=== PATIENT | female | born 1955 | race Caucasian/White ===

== ENCOUNTER 2017-05-03 18:41 | Inpatient (IN) ==
[2017-05-03] MEDS ORDERED: SODIUM CHLORIDE 0.9% 500 ML IV STA (19:40)
--- NOTE | 2017-05-03 19:47 | Emergency Department Note ---
Arrival - Arrival Chief Complaint: Arrhythmia/Palpitations Stated Complaint: PT HAS HEART MONITOR/DR CALLED TO COME TO ER ED Nursing Triage Note: Pt states that she is wearing 30 day holter monitor and states that she was called by monitor [employer] and was told to come to ER after a near syncopal episode Mode of Arrival: Ambulatory Limitations: No Limitations Source: Patient Time Seen by Provider: 05/03/17 19:28 - History of Present Illness HPI Narrative: The patient complains of a near syncopal episode this afternoon. It occurred while she was sitting at her computer. She felt lightheaded and everything turned dark. She felt like she was going to pass out but never actually did. This patient has a history of these episodes and a history of paroxysmal A. fib which is manifested by palpitations only, but the 2 do not seem to be connected. She is currently wearing a 30 day Holter monitor. The patient was not having her typical A. fib symptoms when this episode occurred. She pushed the event button on her monitor. She was called later by the monitor company who then contacted [facility]. They apparently contacted Dr. Gonsales and were told to send the patient to the emergency room. It is unclear what the finding was that prompted this. The patient did not have chest pain, palpitations, shortness of breath, nausea, vomiting or diaphoresis. She denies any recent illness. She was recently admitted at [facility] for further evaluation of these episodes. She says she had an echocardiogram which showed an ejection fraction of 30%. She says she also had right and left heart catheterizations. They found only a 30% blockage in 1 of her stents. She apparently had some CHF there as they diuresed her and put her on outpatient Lasix. She denies any swelling or increased shortness of breath. She thinks that she has taken too much Lasix and is now dehydrated. Date of Last Menstrual Period: chase Allergies/Adverse Reactions: Allergies Allergy/AdvReac Type Severity Reaction Status Date / Time Penicillins Allergy RASH Verified 02/24/16 22:00 Home Medications: Home Medications Medication Instructions Recorded Confirmed Type Albuterol Sulfate [Proair HFA] 2 puff INH Q6H PRN 02/24/16 02/25/16 History Aspirin [Ecotrin] 325 mg PO DAILY 02/24/16 02/25/16 History Dronedarone [Multaq] 400 mg PO BID W/MEALS 02/24/16 02/25/16 History Niacin ER [Niaspan] 500 mg PO DAILY 02/24/16 02/25/16 History Potassium Chloride [Klor-Con M20] 20 meq PO DAILY 02/24/16 02/25/16 History clonazePAM [Clonazepam] 0.25 mg PO Q8HR PRN 02/24/16 02/25/16 History Nicotine 7 mg/24 Hr Patch 1 patch TRANSDERM DAILY #30 patch 02/25/16 Rx [Nicoderm CQ 7 mg/24 hr Patch] Sertraline [Zoloft] 50 mg PO BEDTIME #30 tablet 02/25/16 Rx Review of System - Review of System 12 point system: reviewed and no additional remarkable complaints except as stated - Review of System Constitutional: Absent: fever, weakness Head/Ears/Nose/Throat: Absent: nasal drainage, sore throat Respiratory: Present: cough. Absent: respiratory distress, wheezing Cardiovascular: Present: palpitations, edema. Absent: chest pain, dyspnea on exertion, orthopnea Gastrointestinal: Absent: nausea, vomiting Medical,Surgical,& Family Hx - Medical History Cardio: History of: Cardiac Dysrhythmia (A-FIB), CAD, Hypertension Respiratory: History of: COPD, Obstructive Sleep Apnea, Pneumonia Gastrointestinal: History of: GERD - Surgical History Cardiac Surgeries: Sugical HX of: Cardiac Catheterization (2011 STENTS. 2017 at [facility], results unknown) Abdominal Surgeries: Surgical HX of: Cholecystectomy - Family History Family History: Reports;: Family Cancer (dad), Family Heart Disease (mother, sister), Family Hypertension (dad, sister), Family Psychiatric Problems (sister , brother) Denies;: Family Anesthesia Reaction, Family Diabetes, Family Stroke - Social History Smoking Status: Current every day smoker Frequency of Alcohol Use: None Type of Drug Use: None Exam Physical Examination: GENERAL: Alert. No acute distress. HEENT: Normocephalic and atraumatic. There is no nasal drainage. No pharyngeal erythema or exudate. NECK: Normal inspection. Supple. No lymphadenopathy or meningismus. LUNGS: No respiratory distress. Clear to auscultation bilaterally, no wheezes, rales or rhonchi. HEART: Regular rate and rhythm. ABDOMEN: Soft, nontender and nondistended with normoactive bowel sounds. BACK: Normal inspection. SKIN: Color normal. Warm and dry. EXTREMITIES: Nontender. Normal range of motion. No pedal edema. NEUROLOGICAL/PSYCHIATRIC: Alert and oriented -3 with normal mood and affect. Cranial nerves normal. No motor or sensory deficit. Vital Signs: Vital Signs Temperature 98.1 F 05/03/17 19:10 Pulse Rate 76 05/03/17 19:10 Respiratory Rate 16 05/03/17 19:10 Blood Pressure 121/68 05/03/17 19:10 O2 Sat by Pulse Oximetry 95 05/03/17 18:53 Course - Reevaluation(s) Reevaluation #1: The patient has remained stable in the ER with normal vital signs. No further episodes of dizziness/near syncope. No palpitations or evidence of arrhythmia. Her troponin was slightly elevated at 0.4 but otherwise her workup was negative. I discussed the patient with Dr. Gonsales. He tells me that the monitor company relate to him that the patient was in a wide complex tachycardia when she pushed the event button on her monitor. He is concerned that it may have been V. tach and that is why she was instructed to come to the emergency room. I will admit to him. We will give Lovenox check serial EKGs and an EKG in the morning. Time: 22:29 Results - Labs CBC & BMP: 05/03/17 19:48 05/03/17 19:48 Lab Results: I have reviewed the patients labs Labs: Laboratory Tests 05/03/17 05/03/17 05/03/17 19:48 19:48 19:48 INR 1.0 D-Dimer, Quantitative <= 0.5 Total Bilirubin < 0.39 AST 14 ALT 22 Alkaline Phosphatase 66 Total Creatine Kinase CK-MB (CK-2) Troponin I B-Natriuretic Peptide 27 05/03/17 19:48 INR D-Dimer, Quantitative Total Bilirubin AST ALT Alkaline Phosphatase Total Creatine Kinase 54 CK-MB (CK-2) < 1.0 Troponin I 0.424 H B-Natriuretic Peptide - Impressions Chest x-ray shows:Heart size and mediastinal contour remain normal. No discrete infiltrates are shown. Scattered calcified granulomata are present, and there is mild central peribronchial thickening. Pleural spaces are clear. Disposition Clinical Impression: Near syncope, Wide-complex tachycardia, History of atrial fibrillation Case discussed with: patient, patient's family Disposition: Still a Patient Condition: Stable Time of Disposition: 22:32
[2017-05-03 19:58] LABS: Basophils % 0.4 % (0.0-0.8); Eosinophils # 0.2 10*3/uL (0.0-0.87); Eosinophils % 1.9 % (0.00-10.9); Hematocrit 45.7 VOL% (35.7-47.0); Hemoglobin 15.7 GM/DL (12.0-16.0); Immature Granulocytes % 0.4 %; Immature Granulocytes Absolute 0.04 #; Lymphocytes # 2.5 10*3/uL (1.4-4.0); Lymphocytes % 24.5 % (21.3-54.2); Mean Corpuscular HGB Conc 34.4 GM/DL (32-36); Mean Corpuscular Hemoglobin 33 PG (27-34); Mean Corpuscular Volume 94.6 FL (87-102); Mean Platelet Volume 9.9 FL (9.6-12.0); Monocytes # 0.9 10*3/uL (0.11-0.8); Monocytes % 8.8 % (1.7-12.7); Neutrophils # 6.5 10*3/uL (1.4-7.4); Platelet Count 220 T/CUMM (130-400); Red Blood Count 4.83 MC/CUMM (3.8-5.5); Red Cell Distribution Width 12.7 % (9.3-17.3); White Blood Count 10.2 T/CUMM (4-12)
[2017-05-03 20:13] LABS: D-Dimer <= 0.5 MG/L FEU; PT Patient Result 10.3 SECS; Partial Thromboplastin Time 28.9 SECS (0-40)
[2017-05-03 20:19] LABS: Alanine Aminotransferase 22 U/L (13-56); Albumin 3.7 G/DL (3.4-5.0); Alkaline Phosphatase 66 U/L (45-117); Aspartate Amino Transferase 14 U/L (0-37); Bilirubin,Total < 0.39 MG/DL (0.2-1.0); Blood Urea Nitrogen 25 MG/DL (7-18); Calcium 8.5 MG/DL (8.5-10.1); Glucose 95 MG/DL (74-106); Potassium 3.5 MMOL/L (3.5-5.1); Sodium 143 MMOL/L (136-145); Total Protein 6.7 G/DL (6.4-8.3)
[2017-05-03 20:20] LABS: Troponin I Only 0.424 NG/ML (0.00-0.045)
--- NOTE | 2017-05-03 20:33 | XRay Report ---
XR chest 1V portable Indication: Syncope. Chest one view: Comparison 02/24/2016. Heart size and mediastinal contour remain normal. No discrete infiltrates are shown. Scattered calcified granulomata are present, and there is mild central peribronchial thickening. Pleural spaces are clear. Impression: Mild airways disease. PROCEDURE INTERPRETED AT [facility] DEPARTMENT OF RADIOLOGY Final Report Signed by: Santi Benoit M.D.
[2017-05-03] MEDS ORDERED: traZODone 50 MG TABLET PO PRN (22:37)
[2017-05-03] MEDS ORDERED: MAGNESIUM SULF RIDER 2 GM in PREMIX 1 EACH IV PRN (22:37)
[2017-05-03] MEDS ORDERED: MAGNESIUM SULF RIDER 4 GM in PREMIX 1 EACH IV PRN (22:37)
[2017-05-03] MEDS ORDERED: ALBUTEROL 2.5 MG/3 ML NEB RESP TX PRN (22:39)
[2017-05-03] MEDS ORDERED: ENOXAPARIN 80 MG/0.8 ML SYRINGE SUBCUT STA (22:41)
[2017-05-03] MEDS ORDERED: ENOXAPARIN 80 MG/0.8 ML SYRINGE SUBCUT ONE (23:25)
[2017-05-04] MEDS ORDERED: DRONEDARONE 400 MG TABLET PO SCH (08:00)
--- NOTE | 2017-05-04 08:14 | EKG Report ---
Stationary ECG Study [facility] Test Date: 05/04/2017 8:12:47 AM Pat Name: BILLY FUENTES Department: Room: 285 Gender: F Yard Brakeman: ESPINOZA : 1955 Requested by: Chase Ovalles Order Number: [id number] Reading MD: CARRIE GUO Intervals [place] Rate: 58 P: 68 AR: 139 QRS: 67 QRSD: 102 T: 35 QT: 446 QTc: 442 Interpretive Statements SINUS RHYTHM WITH SINUS ARRHYTHMIA NONSPECIFIC T-WAVE ABNORMALITY Electronically Signed On 05-04-17 11:33:17 CDT by CARRIE GUO [email or web address]
[2017-05-04] MEDS: ASPIRIN EC 325 MG TABLET PO SCH (09:06)
[2017-05-04] MEDS: PANTOPRAZOLE 40 MG TABLET PO SCH (09:06)
--- NOTE | 2017-05-04 09:50 | EKG Report ---
Stationary ECG Study [facility] Test Date: 05/03/2017 6:57:26 PM Pat Name: BILLY FUENTES Department: Room: 285 Gender: F Data Processing Specialist: Sarah : 1955 Requested by: Chase Ovalles Order Number: [id number] Reading MD: CARRIE GUO Intervals [place] Rate: 76 P: 55 IA: 129 QRS: 67 QRSD: 101 T: 6 QT: 416 QTc: 446 Interpretive Statements SINUS RHYTHM Electronically Signed On 05-04-17 11:31:57 CDT by CARRIE GUO [email or web address]
--- NOTE | 2017-05-04 14:00 | Cardiology History & Physical ---
Assessment and Plan - Time spent with patient Time spent with patient: Greater than 30 minutes (1) Wide-complex tachycardia Status: Acute Assessment and plan: On monitoring, the wide-complex tachycardia and near syncope is worrisome for ventricular tachycardia With her worsening LV function, the chance of it being life-threatening increases dramatically She is intolerant of sotalol, and it is a low-dose --it is not controlling her arrhythmia Apparently the Multitak did not work, per [facility]'s assessment--so we will be DC'd, not continued We will give a trial of amiodarone 200 mg p.o. twice daily for about 14 days then 1 daily May need an ICD We will consult Dr. Katie Menon on Saturday Since she is having a cough coughing, I would not use an SHONDA inhibitor. I will give a trial of low-dose of losartan We will possibly try low-dose Coreg tomorrow if her blood pressure can tolerate it. We will reduce the furosemide 20 mg daily which might allow using other heart failure type medications because they would get better blood pressure I will discussed with her about using bupropion to help quit smoking, if she wants to quit Get [facility] records Get a copy of the wide-complex tachycardia per the monitoring service to review by Dr. anuj menon and her sheep and wheat farmer I discussed with the patient the benefits of stopping tobacco/nicotine, the problems with continuing to use it, and options of treatment. The patient is considering this option. Current Visit: Yes (2) Systolic dysfunction, left ventricle Status: Acute Current Visit: Yes (3) Medication intolerance Status: Acute Current Visit: Yes (4) Hypotension due to medication Status: Acute Current Visit: Yes (5) Cough Status: Acute Current Visit: Yes (6) History of atrial fibrillation Status: Acute Current Visit: Yes (7) Near syncope Status: Acute Current Visit: Yes (8) Wide-complex tachycardia Status: Acute Current Visit: Yes (9) Atrial fibrillation Status: Acute Current Visit: No (10) High risk medication use Status: Acute Current Visit: No (11) Hyperlipidemia Status: Acute Current Visit: No (12) Palpitations Status: Acute Current Visit: No (13) Panic attacks Status: Acute Current Visit: No (14) Smoker Status: Acute Current Visit: No (15) Statin intolerance Status: Acute Current Visit: No (16) Stress and adjustment reaction Status: Acute Current Visit: No (17) Symptomatic PVCs Status: Acute Current Visit: No History of Present Illness Chief complaint: "I Almost blacked out"--on monitoring it was noted to be a rapid, wide-cp t History of present illness: Ms. Mcrae is a 61 year old female PCP: Dawna Dougherty, nurse practitioner Mail Opener: Has been Dr. brunner, but is changing to Dr. Vines--her sees Dr. Vines and the they would prefer to both follow-up with him-- okay with me Ms. Mcrae has known CAD. She has had stents in the past. She does have intermittent chest pain which could be coronary disease or reflux. I did a stress with test on her in about January or February and showed no ischemia. Ejection fraction was slightly reduced. She was not having symptoms of heart failure at that time. She was not completely happy with the call back about the results of the stress test and she was very worried about the low ejection fraction. She is seen Dr. Maldonado sometime in August and he noted that she had atrial tachycardia moderate to field and he did not recommend ablation at that time. Recently she had some more symptoms of palpitations and/or near blackout. Her nurse practitioner, Dawna Gonzales, encouraged her to go to be seen at [facility]. She went to [facility]. She was in about a week. They changed her meds. They stopped of Multitak. They placed her on sotalol. She did not know it, but she been on Betapace years ago in the past and did not tolerate it well. She did not tolerate this well at this time. They did an echo at [facility]. Her LVEF was 30%. There is a heart cath. 2 of her stents were 60% narrowed. One was 40% narrowing. There was one vessel cut off. I presume it was occluded. Thus, no intervention was done. It was thought she was not having active ischemia contributing to the arrhythmias. She is changed to sotalol. He also placed on lisinopril 2.5 mg daily. Her blood pressure is low at 80/60. She was let go home. She was at home and felt her heart racing. She called Dr. Vines or saw him or else he just had her start using a 30 day event monitor. She had an episode of near syncope yesterday. She called into the monitoring service. They noticed a wide complex tachycardia and I encouraged him to go the emergency room. She came to emergency room. She has not had anymore episodes since that time. She is having some coughing. He was evaluated at [facility]. I think she was saw management instructor. They felt it was due to heart failure. She was begun on Lasix for heart failure She is having diarrhea and thinks is due to her meds. She says she has not felt well since her strep throat in 11/2016 She thinks of Multitak helped her palpitations predominantly but not completely. He smokes about a half pack of cigarettes per day. She states her eighth rib has been intermittent. When it occurs it does not last more than about 10-12 hours. She has not noticed her atrial fib occurring for as long as a few weeks at a time. Does not drink alcohol Home Medications Medication Instructions Recorded Confirmed Type Potassium Chloride [Klor-Con M20] 20 meq PO DAILY 02/24/16 05/04/17 History Apixaban [Eliquis] 5 mg PO BID 05/04/17 05/04/17 History Ascorbic Acid [Vitamin C] 500 mg PO BID 05/04/17 05/04/17 History Aspirin 81 mg PO DAILY 05/04/17 05/04/17 History Calcium Carbonate/Vitamin D3 500 mg PO BID 05/04/17 05/04/17 History [Calcium 500 + Vit D 200 Tablet] Furosemide Tab [Lasix Tab] 40 mg PO DAILY 05/04/17 05/04/17 History Sotalol [Betapace] 40 mg PO BID 05/04/17 05/04/17 History Allergies Allergy/AdvReac Type Severity Reaction Status Date / Time Penicillins Allergy RASH Verified 02/24/16 22:00 12 point system: reviewed and no additional remarkable complaints except as stated (A 12 point review of systems is negative except for as mentioned in HPI. ) Medical,Surgical,& Family Hx - Medical History Cardio: History of: Cardiac Dysrhythmia (A-FIB), CAD, Hypertension Respiratory: History of: COPD, Obstructive Sleep Apnea, Pneumonia Gastrointestinal: History of: GERD - Surgical History Cardiac Surgeries: Sugical HX of: Cardiac Catheterization (2011 STENTS. 2017 at [facility], results unknown) Abdominal Surgeries: Surgical HX of: Cholecystectomy - Family History Family History: Reports;: Family Cancer (dad), Family Heart Disease (mother, sister), Family Hypertension (dad, sister), Family Psychiatric Problems (sister , brother) Denies;: Family Anesthesia Reaction, Family Diabetes, Family Stroke - Social History Smoking Status: Current every day smoker Frequency of Alcohol Use: None Type of Drug Use: None Marital Status: Lives With:: Spouse Functional capacity: independent ambulation Cardiology Physical Exam - Constitutional Vitals: Vital Signs Temp Pulse Resp BP Pulse Ox 98.4 F 67 18 126/64 93 L 05/04/17 12:00 05/04/17 12:00 05/04/17 12:00 05/04/17 12:00 05/04/17 12:00 Intake and Output 05/03/17 05/04/17 05/04/17 23:59 07:59 15:59 Intake Total 0 / 0 Balance 0 / 0 Intake: Oral 0 / 0 Other: Voiding Method Toilet # Voids 2 Weight 77.224 kg 77.224 kg Patient Weight 05/04/17 23:59 Weight 77.224 kg Exam: HEENT: Pupils equal, reactive to light and accommodation Neck: NoJVD or bruit Lungs clear to auscultation Heart: Regular rhythm rate with normal S1 and S2. Apical S4 Abdomen: No hepatosplenomegaly Spine/extremities: No clubbing, cyanosis, or edema Neuro: Nonfocal Psych: No depression or anxiety Result/EKG - Labs CBC & BMP: 05/03/17 19:48 05/03/17 19:48 Lab Results: I have reviewed the past 24 hour labs Labs: Laboratory Results - last 24 hr 05/03/17 05/03/17 05/03/17 19:48 19:48 19:48 WBC RBC Hgb Hct MCV MCH MCHC RDW Plt Count MPV Neut % (Auto) Lymph % (Auto) Smyth % (Auto) Eos % (Auto) Baso % (Auto) Neut # (Auto) Lymph # (Auto) Smyth # (Auto) Eos # (Auto) Baso # (Auto) Immature Gran % Nucleated RBC % Immature Gran # Nucleated RBCs # Immature Plt Fraction INR 1.0 PT Patient/Control Mix 10.3 D-Dimer, Quantitative <= 0.5 Circ Anticoag PTT 28.9 Sodium 143 Potassium 3.5 Chloride 105 Carbon Dioxide 30 Anion Gap 11.5 BUN 25 H Creatinine 0.70 GFR Calculation 93 BUN/Creatinine Ratio 35.00 H Glucose 95 Calculated Osmolality 288.0 Calcium 8.5 Total Bilirubin < 0.39 AST 14 ALT 22 Alkaline Phosphatase 66 Total Creatine Kinase CK-MB (CK-2) Troponin I B-Natriuretic Peptide 27 Total Protein 6.7 Albumin 3.7 Globulin 3.0 Albumin/Globulin Ratio 1.2 05/03/17 05/03/17 05/04/17 19:48 19:48 00:57 WBC 10.2 RBC 4.83 Hgb 15.7 Hct 45.7 MCV 94.6 MCH 33 MCHC 34.4 RDW 12.7 Plt Count 220 MPV 9.9 Neut % (Auto) 64.0 Lymph % (Auto) 24.5 Smyth % (Auto) 8.8 Eos % (Auto) 1.9 Baso % (Auto) 0.4 Neut # (Auto) 6.5 Lymph # (Auto) 2.5 Smyth # (Auto) 0.9 H Eos # (Auto) 0.2 Baso # (Auto) 0.0 Immature Gran % 0.4 Nucleated RBC % 0.0 Immature Gran # 0.04 Nucleated RBCs # 0.00 Immature Plt Fraction 0.0 INR PT Patient/Control Mix D-Dimer, Quantitative Circ Anticoag PTT Sodium Potassium Chloride Carbon Dioxide Anion Gap BUN Creatinine GFR Calculation BUN/Creatinine Ratio Glucose Calculated Osmolality Calcium Total Bilirubin AST ALT Alkaline Phosphatase Total Creatine Kinase 54 CK-MB (CK-2) < 1.0 Troponin I 0.424 H 0.431 H B-Natriuretic Peptide Total Protein Albumin Globulin Albumin/Globulin Ratio 05/04/17 05/04/17 05:06 06:54 WBC RBC Hgb Hct MCV MCH MCHC RDW Plt Count MPV Neut % (Auto) Lymph % (Auto) Smyth % (Auto) Eos % (Auto) Baso % (Auto) Neut # (Auto) Lymph # (Auto) Smyth # (Auto) Eos # (Auto) Baso # (Auto) Immature Gran % Nucleated RBC % Immature Gran # Nucleated RBCs # Immature Plt Fraction INR PT Patient/Control Mix D-Dimer, Quantitative Circ Anticoag PTT Sodium Potassium Chloride Carbon Dioxide Anion Gap BUN Creatinine GFR Calculation BUN/Creatinine Ratio Glucose Calculated Osmolality Calcium Total Bilirubin AST ALT Alkaline Phosphatase Total Creatine Kinase CK-MB (CK-2) Troponin I 0.440 H 0.407 H B-Natriuretic Peptide Total Protein Albumin Globulin Albumin/Globulin Ratio - Diagnostic Findings Procedure: Chest x-ray: report reviewed by me - EKG EKG results: interpreted by me
[2017-05-04] MEDS: AMIODARONE 200 MG TABLET PO SCH ×2 (14:37→22:13)
[2017-05-04] MEDS: BENZONATATE 100 MG CAPSULE PO SCH ×2 (14:37→22:13)
[2017-05-04] MEDS: ASCORBIC ACID 500 MG TABLET PO SCH ×2 (14:58→22:13)
[2017-05-04 16:22] LABS: Free T4 (Free Thyroxine) 1.21 NG/DL (0.76-1.46); Thyroid Stimulating Hormone 0.691 uIU/ml (0.358-3.74)
[2017-05-04] MEDS: CALCIUM (CARBONATE)/VITAMIN D 500 MG-200 UNIT TABLET PO SCH (22:13)
[2017-05-04] MEDS: APIXABAN 5 MG TABLET PO SCH (22:13)
[2017-05-05] MEDS ORDERED: FUROSEMIDE 40 MG TABLET PO SCH (09:00)
[2017-05-05] MEDS: CALCIUM (CARBONATE)/VITAMIN D 500 MG-200 UNIT TABLET PO SCH ×2 (09:24→21:51)
[2017-05-05] MEDS: ASCORBIC ACID 500 MG TABLET PO SCH ×2 (09:24→21:51)
[2017-05-05] MEDS: LOSARTAN 25 MG TABLET PO SCH (09:24)
[2017-05-05] MEDS: POTASSIUM CHLORIDE 20 MEQ TABLET PO SCH (09:25)
[2017-05-05] MEDS: APIXABAN 5 MG TABLET PO SCH ×2 (09:25→21:50)
[2017-05-05] MEDS: ASPIRIN CHEW 81 MG TABLET PO SCH (09:25)
[2017-05-05] MEDS: FUROSEMIDE 20 MG TABLET PO SCH (09:26)
[2017-05-05] MEDS: AMIODARONE 200 MG TABLET PO SCH ×2 (09:26→21:51)
[2017-05-05] MEDS: BENZONATATE 100 MG CAPSULE PO SCH ×2 (09:26→21:51)
[2017-05-05] MEDS: PANTOPRAZOLE 40 MG TABLET PO SCH (09:40)
[2017-05-05] MEDS: ASPIRIN EC 325 MG TABLET PO SCH (09:40)
--- NOTE | 2017-05-05 10:52 | EKG Report ---
Stationary ECG Study [facility] Test Date: 05/05/2017 8:25:12 AM Pat Name: BILLY FUENTES Department: Room: 285 Gender: F Aircraft Motor Mechanic: ESPINOZA : 1955 Requested by: Carrie Gonsales Order Number: [id number] Reading MD: CARRIE GONSALES Intervals [place] Rate: 80 P: 65 VT: 132 QRS: 59 QRSD: 93 T: 7 QT: 387 QTc: 423 Interpretive Statements SINUS RHYTHM WITH OCCASIONAL ECTOPIC PREMATURE COMPLEXES INTERPRETATION BASED ON A DEFAULT AGE OF 40 YEARS Electronically Signed On 05-05-17 10:53:43 CDT by CARRIE GONSALES [id number]
--- NOTE | 2017-05-05 15:34 | Cardiology Progress Note ---
Assessment and Plan (1) Wide-complex tachycardia Status: Acute Assessment and plan: On monitoring, the wide-complex tachycardia and near syncope is worrisome for ventricular tachycardia With her worsening LV function, the chance of it being life-threatening increases dramatically She is intolerant of sotalol, and it is a low-dose --it is not controlling her arrhythmia Apparently the Multitak did not work, per [facility]'s assessment--so we will be DC'd, not continued We will give a trial of amiodarone 200 mg p.o. twice daily for about 14 days then 1 daily May need an ICD We will consult Dr. Katie Farley on Saturday Since she is having a cough coughing, I would not use an SHONDA inhibitor. I will give a trial of low-dose of losartan We will possibly try low-dose Coreg tomorrow if her blood pressure can tolerate it. We will reduce the furosemide 20 mg daily which might allow using other heart failure type medications because they would get better blood pressure I will discussed with her about using bupropion to help quit smoking, if she wants to quit Get [facility] records Get a copy of the wide-complex tachycardia per the monitoring service to review by Dr. anuj farley and her deburrer machine I discussed with the patient the benefits of stopping tobacco/nicotine, the problems with continuing to use it, and options of treatment. The patient is considering this option. 05/05/17 Has had no more wide-complex tachycardia Tolerating the low-dose of losartan well Tolerating amiodarone, off sotalol well We will add a very low-dose of carvedilol. will start her on 3.125 mg one half p.o. twice daily and hold if systolic blood pressures less than 100 at the dose Tessalbob Perles seem to be helping her cough Consult Dr. Tiburcio Farley in the morning Dr. Joaquina Pope, her new deburrer machine, will see her in the morning Give her some extra potassium today--40 mg p.o. now Recheck CMP in a.m. Current Visit: Yes (2) Systolic dysfunction, left ventricle Status: Acute Current Visit: Yes (3) Medication intolerance Status: Acute Current Visit: Yes (4) Hypotension due to medication Status: Acute Current Visit: Yes (5) Cough Status: Acute Current Visit: Yes (6) History of atrial fibrillation Status: Acute Current Visit: Yes (7) Near syncope Status: Acute Current Visit: Yes (8) Wide-complex tachycardia Status: Acute Current Visit: Yes (9) Atrial fibrillation Status: Acute Current Visit: No (10) High risk medication use Status: Acute Current Visit: No (11) Hyperlipidemia Status: Acute Current Visit: No (12) Palpitations Status: Acute Current Visit: No (13) Panic attacks Status: Acute Current Visit: No (14) Smoker Status: Acute Current Visit: No (15) Statin intolerance Status: Acute Current Visit: No (16) Stress and adjustment reaction Status: Acute Current Visit: No (17) Symptomatic PVCs Status: Acute Current Visit: No Cardiology - PN: Subj Interval history: No chest pain, shortness breath, or syncope. She has not felt her heart racing. Exam (Progress Note) - Constitutional Vitals: Period Temp Pulse Resp BP Sys/Walekr Pulse Ox Last 24 Hr 9.4 F-100 F 57-87 18-20 102-138/48-73 90-94 Exam: HEENT: Pupils equal, reactive to light and accommodation Neck: NoJVD or bruit Lungs clear to auscultation Heart: Regular rhythm rate with normal S1 and S2. Apical S4 Abdomen: No hepatosplenomegaly Spine/extremities: No clubbing, cyanosis, or edema Neuro: Nonfocal Psych: No depression or anxiety Result/EKG - Labs CBC & BMP: 05/03/17 19:48 05/03/17 19:48 Lab Results: I have reviewed the past 24 hour labs Labs: Laboratory Results - last 24 hr 05/04/17 06:51 Free T4 1.21 TSH 3rd Generation 0.691 - EKG EKG results: interpreted by me
[2017-05-05] MEDS ORDERED: POTASSIUM CHLORIDE 20 MEQ PACK PO ONE (15:35)
[2017-05-05] MEDS: CARVEDILOL 3.125 MG TABLET PO SCH ×2 (16:33→21:50)
[2017-05-06 05:32] LABS: Albumin 3.1 G/DL (3.4-5.0); Bilirubin,Total 0.7 MG/DL (0.2-1.0); Osmolality,Calculated 288.7 MOS/KG (273-304); Potassium 3.8 MMOL/L (3.5-5.1)
--- NOTE | 2017-05-06 07:18 | EKG Report ---
Stationary ECG Study [facility] Test Date: 05/06/2017 7:19:14 AM Pat Name: BILLY FUENTES Department: Room: 285 Gender: F Senior Javascript Engineer: ODALYS : 1955 Requested by: Jaun Gonsales Order Number: [id number] Reading MD: SHANKAR SCHAEFER Intervals [place] Rate: 61 P: 79 TN: 125 QRS: 72 QRSD: 98 T: 11 QT: 443 QTc: 445 Interpretive Statements SINUS RHYTHM WITH OCCASIONAL ECTOPIC PREMATURE COMPLEXES NONSPECIFIC T-WAVE ABNORMALITY Electronically Signed On 05-06-17 10:54:21 CDT by SHANKAR SCHAEFER [email or web address]
[2017-05-06] MEDS: CALCIUM (CARBONATE)/VITAMIN D 500 MG-200 UNIT TABLET PO SCH ×2 (09:54→22:37)
[2017-05-06] MEDS: ASPIRIN EC 325 MG TABLET PO SCH (09:55)
[2017-05-06] MEDS: ASCORBIC ACID 500 MG TABLET PO SCH ×2 (09:55→22:36)
[2017-05-06] MEDS: BENZONATATE 100 MG CAPSULE PO SCH ×2 (09:55→22:36)
[2017-05-06] MEDS: FUROSEMIDE 20 MG TABLET PO SCH (09:55)
[2017-05-06] MEDS: AMIODARONE 200 MG TABLET PO SCH ×2 (09:56→22:37)
[2017-05-06] MEDS: PANTOPRAZOLE 40 MG TABLET PO SCH (09:56)
[2017-05-06] MEDS: LOSARTAN 25 MG TABLET PO SCH (09:57)
[2017-05-06] MEDS: APIXABAN 5 MG TABLET PO SCH (09:57)
[2017-05-06] MEDS: ASPIRIN CHEW 81 MG TABLET PO SCH (09:58)
[2017-05-06] MEDS: CARVEDILOL 3.125 MG TABLET PO SCH ×2 (09:58→22:38)
[2017-05-06] MEDS: POTASSIUM CHLORIDE 20 MEQ TABLET PO SCH (09:58)
--- NOTE | 2017-05-06 10:45 | Cardiology Progress Note ---
<Debbie Walden E - Last Filed: 05/06/17 11:21> Assessment and Plan - Time spent with patient Time spent with patient: Greater than 30 minutes Time spent discussing smoking cessation with patient: 3 to 10 minutes (1) CAD (coronary artery disease) Status: Chronic Assessment and plan: SEE PLAN OF CARE LISTED BELOW Current Visit: Yes Qualifiers: Coronary Disease-Associated Artery/Lesion type: chicken [place] artery [place] vs. transplanted heart: chicken ranch heart Associated angina: without angina Qualified Code(s): I25.10 - Atherosclerotic heart disease of chicken ranch coronary artery without angina pectoris (2) PAF (paroxysmal atrial fibrillation) Status: Chronic Assessment and plan: SEE PLAN OF CARE LISTED BELOW Current Visit: Yes (3) Hypertension Status: Chronic Assessment and plan: SEE PLAN OF CARE LISTED BELOW Current Visit: Yes (4) Dyslipidemia Status: Chronic Assessment and plan: SEE PLAN OF CARE LISTED BELOW Current Visit: Yes (5) Tobacco use Status: Chronic Assessment and plan: SEE PLAN OF CARE LISTED BELOW Current Visit: Yes (6) Palpitations Status: Acute Assessment and plan: SEE PLAN OF CARE LISTED BELOW Current Visit: No (7) History of atrial fibrillation Status: Chronic Assessment and plan: SEE PLAN OF CARE LISTED BELOW Current Visit: Yes (8) Hyperlipidemia Status: Chronic Assessment and plan: SEE PLAN OF CARE LISTED BELOW Current Visit: No (9) High risk medication use Status: Chronic Assessment and plan: SEE PLAN OF CARE LISTED BELOW Current Visit: No (10) Smoker Status: Chronic Assessment and plan: SEE PLAN OF CARE LISTED BELOW Current Visit: No (11) Near syncope Status: Acute Assessment and plan: SEE PLAN OF CARE LISTED BELOW Current Visit: Yes Cardiology - PN: Subj Interval history: PATIENT SAFETY ATTENDANT: Has seen Dr. Gonsales, but is changing to Dr. Pope--her sees Dr. Pope, they prefer to both follow-up with Dr. Pope. PCP: CLYDE HOLM SUMMARY: Ms. Mcrae, 61F, with history of known CAD, hypertension, dyslipidemia, PAF, LAINA, NSVT and NICM. Last seen in cardiology clinic by Dr. Pope April 26, 2017. Admitted through ED of [facility] May 04, 2017 for near syncope, palpitation. She was wearing an event monitor at the time. She called the monitoring service to report her symptoms of palpitations and weakness. They noted a wide complex tachycardia and encouraged her to be evaluated in the emergency department. She has been hospitalized over the weekend on telemetry. She has a known history of CAD requiring stents in the past. She underwent stress testing February 21, [address] Gonsales. EF 39% but otherwise no evidence of reversible ischemia. Apparently she was unhappy with the call back about the results of the stress test and she was very worried about the low ejection fraction. Recently she had some more symptoms of palpitations and/ or near blackout. Her nurse practitioner, Dawna Dougherty, encouraged her to go to be seen at [facility]. She went to [facility]. She was in about a week first week of April 2017. They changed her meds. According to Dr. Gonsales's note: Multaq was discontinued, started Sotalol, Eliquis and lisinopril. She did not know it, but she been on Betapace years ago and did not tolerate it well per Dr. Gonsales. They did an echo at [facility], LVEF 30%. Heart cath was performed. Two of her stents were 60% narrowed, one was 40% narrowing. There was one vessel cut off. I presume it was occluded. Thus, no intervention was done. It was thought she was not having active ischemia contributing to the arrhythmias. She was also placed on Lisinopril 2.5 mg daily. Although her blood pressure was low at 80/60, she was discharged. She has continued to have problems with palpitations and for this reason, has been wearing an event monitor. Over the weekend, she felt her heart racing, presyncopal. She called the monitoring service. They noticed a wide complex tachycardia and was encouraged to go to the ED. MAY 06, 2017: Over the weekend, Amiodarone has been started. Dr. Menon, avionics systems integration specialist, has been consulted as well. Will obtain records from event monitoring service to review. Have reports through April 30, 2017 but no others at this point. Telemetry has revealed normal sinus rhythm for the hospital stay. Her vital signs are stable, as are labs. Currently she is on the following medications: Amiodarone, Eliquis, Ascorbic Acid, Coreg 1.5625 twice daily, and Losartan. Overall, she is feeling better. She has been ambulating the halls without difficulty. No additional syncope or presyncope since Saturday no chest pain. Will further discuss with Dr. Pope and await additional recommendations. ASSESSMENT/PLAN: 1. NEAR SYNCOPE - requesting all results from event monitor. 2. PALPITATIONS - continue to follow telemetry 3. CAD - continue low-dose aspirin. No complaints of angina at this time. Recent heart catheterization with results noted above 4. HYPERTENSION - adequately controlled 5. DYSLIPIDEMIA - continue lipid-lowering agent 6. TOBACCO USE - greater than 5 minutes was spent today discussing the merits of tobacco cessation Exam (Progress Note) - Constitutional Vitals: Period Temp Pulse Resp BP Sys/Walker Pulse Ox Last 24 Hr 97.6 F-99.7 F 62-77 18-20 100-135/49-75 90-94 Exam: General: [Appears well with no apparent distress.] [Pleasant and cooperative. ] [Appears comfortable.] HEENT: [PERRL, normocephalic, atraumatic. Mucous membranes moist. No jaundice noted. Conjunctiva moist and clear, sclerae anicteric] Neck: No JVD/HJR, no thyromegaly or lymphadenopathy noted. No carotid bruit appreciated Cardiac: [Regular rate and rhythm.] [No murmur rub or gallop.] Lungs: [Clear to auscultation without accessory muscle use to assist the respiratory pattern.] Not requiring oxygen Abdomen: Soft, bowel sounds normoactive. Nontender and nondistended. No abdominal bruit or thrill noted. No masses noted. Musculoskeletal: No fluid collection. Decreased range of motion is noted. Extremities: No clubbing, cyanosis noted. [ No edema noted.] Upper extremity pulses 2+. Lower extremity pulses 2+. Capillary refill less than 3 seconds. Skin: No unusual lesions or rashes. No skin breakdown appreciated. Neuro: Awake, alert and oriented 3. Moves all extremities well without hemiparesis or paralysis. No essential tremor is appreciated. Result/EKG - Labs CBC & BMP: 05/03/17 19:48 05/06/17 04:27 Lab Results: I have reviewed the past 24 hour labs Labs: Laboratory Results - last 24 hr 05/06/17 04:27 Sodium 145 Potassium 3.8 Chloride 108 H Carbon Dioxide 29 Anion Gap 11.8 BUN 17 Creatinine 0.60 GFR Calculation 100 BUN/Creatinine Ratio 28.00 H Glucose 88 Calculated Osmolality 288.7 Calcium 9.0 Total Bilirubin 0.70 AST 14 ALT 17 Alkaline Phosphatase 55 Total Protein 6.0 L Albumin 3.1 L Globulin 2.9 Albumin/Globulin Ratio 1.0 L - Diagnostic Findings Procedure: Chest x-ray: report reviewed by me - EKG EKG results: interpreted by me EKG shows: sinus rhythm <Joaquina Pope - Last Filed: 05/06/17 15:31> Assessment and Plan - Time spent with patient Time spent with patient: Greater than 30 minutes (Chart review from the office [facility] and is) (1) Palpitations Status: Acute Current Visit: No (2) Atrial fibrillation Status: Acute Current Visit: No (3) Hyperlipidemia Status: Chronic Current Visit: No (4) Statin intolerance Status: Acute Current Visit: No (5) High risk medication use Status: Chronic Current Visit: No (6) Smoker Status: Chronic Current Visit: No (7) Wide-complex tachycardia Status: Acute Current Visit: Yes (8) Systolic dysfunction, left ventricle Status: Acute Current Visit: Yes (9) CAD (coronary artery disease) Status: Chronic Current Visit: Yes Qualifiers: Coronary Disease-Associated Artery/Lesion type: [place] artery [place] vs. transplanted heart: chicken ranch heart Associated angina: without angina Qualified Code(s): I25.10 - Atherosclerotic heart disease of chicken [place] coronary artery without angina pectoris (10) PAF (paroxysmal atrial fibrillation) Status: Chronic Current Visit: Yes Cardiology - PN: Subj Interval history: I spent a significant amount of time reviewing Ms. Mcrae's [facility] chart her clinic chart and her [facility] chart. She has seen several doctors for different times in has various complaints resulting in her changing physician she seen Dr. Gonsales she seen Dr. Menon as she has had 2 ablations at the [facility] and she was supposed to see Dr. Daryl Cervantes on 04/30/2017 but she did not. After recent discharge from [facility] where she had a left heart catheterization and echocardiogram she came to see me a place an event monitor and she had a near syncopal episode on Saturday that was allegedly nonsustained ventricular tachycardia. She had previously initially been on multiecho which she wanted to stop she was started on sotalol at the [facility] and this weekend she was changed from sotalol to amiodarone. She has been on anticoagulation because of her paroxysmal atrial fibrillation. The patient now is admitted for further evaluation. I feel that she needs to see EP. She has seen Dr. Menon in the past and he will see her later today. I called and discussed with Dr. Menon over the phone briefly. Exam (Progress Note) - Constitutional Vitals: Period Temp Pulse Resp BP Sys/Walker Pulse Ox Last 24 Hr 97.6 F-99.7 F 62-77 18-20 100-135/49-75 90-95 Exam: Agree with above physical exam the patient has diffuse rhonchi and prolonged expiratory phase sounds like she has at least moderate chronic obstructive lung disease. Result/EKG - Labs CBC & BMP: 05/03/17 19:48 05/06/17 04:27 Labs: Laboratory Results - last 24 hr 05/06/17 04:27 Sodium 145 Potassium 3.8 Chloride 108 H Carbon Dioxide 29 Anion Gap 11.8 BUN 17 Creatinine 0.60 GFR Calculation 100 BUN/Creatinine Ratio 28.00 H Glucose 88 Calculated Osmolality 288.7 Calcium 9.0 Total Bilirubin 0.70 AST 14 ALT 17 Alkaline Phosphatase 55 Total Protein 6.0 L Albumin 3.1 L Globulin 2.9 Albumin/Globulin Ratio 1.0 L
[2017-05-06] MEDS ORDERED: VANCOMYCIN INJ 1,000 MG in SODIUM CHLORIDE 0.9% 250 ML IV ONE (17:33)
[2017-05-06] MEDS ORDERED: VANCOMYCIN 500 MG VIAL IRRIG ONE (17:33)
--- NOTE | 2017-05-06 17:39 | Electrophysiology Consultation ---
History of Present Illness - Data of Consult Patient: known to practice within the last 3 years Consult date: 05/06/17 Requesting Physician: Jaun Gonsales - Consult Narrative Reason for consult: VT, syncope History of present illness: Ms. Mcrae is a 61 year old female, followed by dr. Pope. EP consult was request for syncope, NSVT. She has a history of ischemic cardiomyopathy, ejection fraction 30%. Was hospitalized at [facility] several days ago, due to CHF exacerbation, LHC confirmed old RCA disease, nonobstructive disease in the LAD and circumflex, patent stents. She was noted to have episodes of mildly symptomatic nonsustained ventricular tachycardia on telemetry. She was diuresed and discharged. She was wearing an event recorder and prior to current admission, had several episodes of furnace puncher palpitations, which was followed by an episode of sudden onset blackening out, while she was sitting. Event recorder confirmed wide QRS regular tachycardia, lasting for several seconds, with VA dissociation, consistent with ventricular tachycardia. She is otherwise feeling fine, has dyspnea exertion with moderate to heavy activity, and had recent leg swelling, until her medications were adjusted. Also history of symptomatic paroxysmal atrial fibrillation, status post ablations in 2001 and 2009, but with symptomatic recurrence since. She could not tolerate high-dose antiarrhythmics in the past, was tried on sotalol recently, which was transitioned to amiodarone during this hospital stay. No history of significant thyroid issues. She has hypertension, well controlled, with occasional hypertension. Hyperlipidemia, she was statin intolerant. She is anticoagulated with Eliquis, no significant bleeding issues so far. EKG shows sinus rhythm, borderline IVCD, PVCs. Prior EKGs and event recorder showed episodes of paroxysmal A. fib/occasional RVR. Telemetry during current hospital shows sinus rhythm, mild sinus arrhythmia, PVCs. She had borderline elevated cardiac biomarkers, without symptoms or EKG changes suggestive of acute AL. She is a smoker, cut back from 2 packs a day to half a pack a day. CC: Jaun Gonsales MD - Home Medications and Allergies Home Medications: Home Medications Medication Instructions Recorded Confirmed Type Potassium Chloride [Klor-Con M20] 20 meq PO DAILY 02/24/16 05/04/17 History Apixaban [Eliquis] 5 mg PO BID 05/04/17 05/04/17 History Ascorbic Acid [Vitamin C] 500 mg PO BID 05/04/17 05/04/17 History Aspirin 81 mg PO DAILY 05/04/17 05/04/17 History Calcium Carbonate/Vitamin D3 500 mg PO BID 05/04/17 05/04/17 History [Calcium 500 + Vit D 200 Tablet] Furosemide Tab [Lasix Tab] 40 mg PO DAILY 05/04/17 05/04/17 History Sotalol [Betapace] 40 mg PO BID 05/04/17 05/04/17 History Allergies/Adverse Reactions: Allergies Allergy/AdvReac Type Severity Reaction Status Date / Time Penicillins Allergy RASH Verified 02/24/16 22:00 Medical,Surgical,& Family Hx - Medical History Cardio: History of: Cardiac Dysrhythmia (A-FIB), CAD, Hypertension Respiratory: History of: COPD, Obstructive Sleep Apnea, Pneumonia Gastrointestinal: History of: GERD - Surgical History Cardiac Surgeries: Sugical HX of: Cardiac Catheterization (2011 STENTS. 2017 at [facility], results unknown) Abdominal Surgeries: Surgical HX of: Cholecystectomy - Family History Family History: Reports;: Family Cancer (dad), Family Heart Disease (mother, sister), Family Hypertension (dad, sister), Family Psychiatric Problems (sister , brother) Denies;: Family Anesthesia Reaction, Family Diabetes, Family Stroke - Social History Smoking Status: Current every day smoker Frequency of Alcohol Use: None Type of Drug Use: None 12 point system: reviewed and no additional remarkable complaints except as stated Exam - Constitutional Vitals: Period Temp Pulse Resp BP Sys/Walker Pulse Ox Last 24 Hr 97.6 F-99.7 F 62-77 18-20 100-117/49-70 92-95 General appearance: no acute distress, over weight - Head Head exam: Present: normal inspection, normocephalic - Eye Eye exam: Absent: conjunctival injection, scleral icterus Pupils: Absent: dilated - ENT ENT exam: Present: normal external ear exam - Neck Neck exam: Present: normal inspection - Respiratory Respiratory exam: Present: clear to auscultation bilaterally. Absent: rhonchi, wheezes - Cardiovascular Cardiovascular exam: Present: regular rate and rhythm. Absent: JVD, systolic murmur - GI/Abdominal GI/Abdominal exam: Present: normal bowel sounds. Absent: distended - Extremities Exam Extremities exam: Present: normal inspection, normal capillary refill. Absent: edema - Back Exam Back exam: Present: normal inspection - Neurological Exam Neurological exam: Present: alert, oriented X3 - Psychiatric Psychiatric exam: Present: normal affect, normal mood - Skin Skin exam: Present: normal color, warm. Absent: cyanosis Results - Labs CBC & BMP: 05/03/17 19:48 05/06/17 04:27 Lab Results: I have reviewed the past 24 hour labs Assessment and Plan (1) Ventricular tachycardia Status: Acute Assessment and plan: 61-year-old female, ischemic cardiomyopathy, ejection fraction 30% despite GDMT , class II heart failure, VT/presyncope, paroxysmal atrial fibrillation, hypertension, statin intolerant hyperlipidemia, smoker. -We discussed risks and benefits of management options. High risk for SCD, with no further options for revascularization. Given her comorbidities, we will plan to proceed with a dual-chamber ICD implant, with defibrillator testing tomorrow. No indication for HRIS DEVELOPER. -N.p.o. after midnight. Hold Eliquis. Resume after device implant for paroxysmal atrial fibrillation. -Recommend to continue the recently started amiodarone, then we can monitor her arrhythmia burden with the device. If improves, this can be weaned off and transitioned to a lower risk option. -Keep on telemetry. -Discussed smoking cessation Current Visit: Yes (2) Palpitations Status: Acute Current Visit: No (3) Atrial fibrillation Status: Acute Current Visit: No (4) Hyperlipidemia Status: Chronic Current Visit: No (5) Statin intolerance Status: Acute Current Visit: No (6) Near syncope Status: Acute Current Visit: Yes (7) Hypertension Status: Chronic Current Visit: Yes (8) Tobacco use Status: Chronic Current Visit: Yes
[2017-05-07 05:05] LABS: Basophils % 0.4 % (0.0-0.8); Eosinophils # 0.2 10*3/uL (0.0-0.87); Eosinophils % 1.9 % (0.00-10.9); Hematocrit 44.2 VOL% (35.7-47.0); Hemoglobin 14.8 GM/DL (12.0-16.0); Immature Granulocytes % 0.4 %; Immature Granulocytes Absolute 0.03 #; Lymphocytes # 2.4 10*3/uL (1.4-4.0); Lymphocytes % 27.6 % (21.3-54.2); Mean Corpuscular HGB Conc 33.5 GM/DL (32-36); Mean Corpuscular Hemoglobin 32 PG (27-34); Mean Corpuscular Volume 96.5 FL (87-102); Monocytes # 0.7 10*3/uL (0.11-0.8); Monocytes % 7.8 % (1.7-12.7); Neutrophils # 5.3 10*3/uL (1.4-7.4); Neutrophils % 61.9 % (38.7-73.9); Platelet Count 199 T/CUMM (130-400); Red Blood Count 4.58 MC/CUMM (3.8-5.5); Red Cell Distribution Width 12.9 % (9.3-17.3); White Blood Count 8.6 T/CUMM (4-12)
[2017-05-07 05:17] LABS: PT Patient Result 10.4 SECS; Partial Thromboplastin Time 28.5 SECS (0-40)
[2017-05-07 05:34] LABS: Calcium 9.1 MG/DL (8.5-10.1); Magnesium 2.2 MG/DL (1.8-2.4); Osmolality,Calculated 288.8 MOS/KG (273-304); Potassium 3.9 MMOL/L (3.5-5.1)
--- NOTE | 2017-05-07 07:48 | EKG Report ---
Stationary ECG Study [facility] Test Date: 05/07/2017 7:16:36 AM Pat Name: BILLY FUENTES Department: Room: 285 Gender: F Catering Driver: ESPINOZA : 1955 Requested by: Tiburcio Menon Order Number: [id number] Reading MD: TANNA OLIVARES Intervals [place] Rate: 68 P: 60 [place]: 133 QRS: 57 QRSD: 102 T: 33 QT: 429 QTc: 446 Interpretive Statements SINUS RHYTHM WITH OCCASIONAL ECTOPIC PREMATURE COMPLEXES Electronically Signed On 05-08-17 07:24:01 CDT by TANNA OLIVARES [email or web address]
--- NOTE | 2017-05-07 08:34 | History and Physical Update ---
Sedation H&P Update - History and Physical H&P was reviewed, the patient examined and there: are no changes in the patients condition since last H&P was completed. - Dictation Physical: refer to H&P completed by admitting physician - Physical Exam Mental Status: alert and oriented Heart: regular rate and rhythm Lung: clear to auscultation Abdomen: within normal limits Vitals: within normal limits - Sedation Plan for Sedation: MAC Patient Consent: Procedure disscussed with patient and patinet has consented., Risks and benefits were discussed with patient,including infection,, bleeding, injury to surrounding structures, seizure, temporary nerve, Patient understands and accepts potential risks/benefits and agrees to ASA Class: IV Airway Assessment: Class III: Soft palate, base of uvula visible
[2017-05-07] MEDS ORDERED: ALBUTEROL/IPRATROPIUM 3 ML NEB RESP TX ONE (08:45)
[2017-05-07] MEDS ORDERED: DIAZEPAM 5 MG TABLET PO ONE (08:46)
[2017-05-07] MEDS: POTASSIUM CHLORIDE 20 MEQ TABLET PO SCH (09:15)
[2017-05-07] MEDS: PANTOPRAZOLE 40 MG TABLET PO SCH (09:15)
[2017-05-07] MEDS: ASCORBIC ACID 500 MG TABLET PO SCH ×2 (09:16→23:12)
[2017-05-07] MEDS: LOSARTAN 25 MG TABLET PO SCH (09:16)
[2017-05-07] MEDS: AMIODARONE 200 MG TABLET PO SCH ×2 (09:16→23:12)
[2017-05-07] MEDS: BENZONATATE 100 MG CAPSULE PO SCH ×2 (09:18→23:12)
[2017-05-07] MEDS: CARVEDILOL 3.125 MG TABLET PO SCH ×2 (09:18→23:12)
[2017-05-07] MEDS: ASPIRIN CHEW 81 MG TABLET PO SCH (09:18)
[2017-05-07] MEDS: CALCIUM (CARBONATE)/VITAMIN D 500 MG-200 UNIT TABLET PO SCH ×2 (09:18→23:12)
[2017-05-07] MEDS ORDERED: LIDOCAINE 2% 5 ML VIAL ONE (09:34)
[2017-05-07] MEDS ORDERED: ETOMIDATE 20 MG/10 ML VIAL IV ONE (09:34)
[2017-05-07] MEDS ORDERED: LIDOCAINE 1% 20 ML VIAL ONE ×2 (09:49→10:44)
[2017-05-07] MEDS ORDERED: VANCOMYCIN 500 MG VIAL ONE (09:49)
[2017-05-07] MEDS ORDERED: TISSUE ADHESIVE 1 EACH APPLICATOR TOP ONE (10:42)
[2017-05-07] MEDS ORDERED: HEPARIN/NACL 0.9% 2 UNITS/ML 0 ML IV ONE (10:43)
--- NOTE | 2017-05-07 11:06 | Cardiac Defibrillator ---
- Preoperative diagnosis Date of Procedure:: 05/07/17 Preop Diagnosis: sustained ventricular tacharrhythmia, either spontaneous or induced by electrophysiology study, not associated with an acute WI &not due to transient reversible cause Pre-op Diagnosis: ICM, VT, syncope Post-op diagnosis: same Procedure: PROCEDURE SUMMARY DDD ICD implant from left axillary vein access. PLAN Bed rest for 4 hours. Routine post ICD implant site care and activity restrictions. Do not remove pressure dressing until AM. Portable CXR, EKG stat. CXR PA/Lat, device interrogation in AM. Vancomycin 1g iv. x1. PROCEDURE Informed consent was obtained and a timeout was performed prior to the procedure. The patient was continuously monitored by ECG, pulse oxymetry and NIBP. 1g iv. Vancomycin was administered prior to the procedure for antibiotic prophylaxis. Monitored anesthesia care was provided by the anesthesia team. The left pectoral area was meticulously prepared with ChloroPrep surgical scrub. Sterile draping was applied and Ioban was used to cover the operation site. The image intensifier was draped with a sterile bag and positioned over the patient's chest. After infiltration with 1% lidocaine, an incision was made in the left infraclavicular area, parallel to the deltopectoral groove. The incision was carried down to the level of the pectoral fascia. A subcutaneous pocket was then created with electrocautery and blunt dissection. Hemostasis was then achieved with electrocautery. A micropuncture needle was used to access the left axillary vein under fluoroscopic guidance. The microfilament was used to introduce the micropuncture sheath, which the was used to introduce and advance a long hydrophylic guidewire into the inferior vena cava. A 10.5 Fr sheath was introduced over the guidewire. The dilator was removed. The right ventricular defibrillator lead was introduced through the sheath. The sheath was then peeled away. The curved stylet was used to move the lead into the right ventricular outflow tract. The stylet was then replaced with a straight stylet and the lead was moved into a stable position on the right ventricular septum. Adequate sensing and pacing threshold was confirmed. The active fixation mechanism was then deployed. Stable signal and pacing threshold was noted, with decrease in pacing impedance. No extracardiac stimulation was noted with high output pacing. The lead was then anchored to the subcutaneous tissue with 2-0 nonabsorbable suture, using the anchoring sleeve near the point of entry to the vein. Another 9 Fr sheath was introduced over the retained guidewire. The dilator was removed. The right atrial pacemaker lead was introduced through the sheath. The sheath was then peeled away. A straight stylet was used to move the lead into the right atrium. The stylet was then replaced with a curved J stylet and the lead was moved into a stable position in the right atrial appendage. Adequate sensing and pacing threshold was confirmed. The active fixation mechanism was then deployed. Stable signal and pacing threshold was noted, with decrease in pacing impedance. No extracardiac stimulation was noted with high output pacing. The lead was then anchored to the subcutaneous tissue with 2-0 nonabsorbable suture, using the anchoring sleeve near the point of entry to the vein. The retained guidewire was removed. The ICD generator was attached to the leads and sealed in the prescribed manner. The wound was flushed with Vancomycin . The generator was placed into the pocket and tied to the pectoral fascia using 2-0 nonabsorbable suture. Stable lead positions were confirmed with fluoroscopy. Ventricular fibrillation was induced with a T wave shock. The device promptly detected the arrhythmia and terminated it with a single 25J shock. The wound was closed using a double layer of 2-0 absorbable Vicryl sutures, followed by a subcuticular running suture with 4-0 Monocryl, then Exofin. A sterile, then a pressure dressing was applied. The device was then interrogated and programmed as detailed below. Device Type SN Location Medtronic [address]a DR DDD ICD [id number] Left infraclavicular Lead Position Type SN P/R Threshold Impedance RA RA appendage Medtronic 5076-52 [id number] 3.7 mV 1.2 V @ 0.5 ms 918 Ohm RV RV septum Medtronic 2247M17 [id number] 14.3 mV 0.4 V @ 0.5 ms 783 Ohm Bradycardia settings MVPR 60/130 Tachycardia settings VT@360ms, VF@300ms The implanted system is MRI conditional. Anesthesia: MAC Surgeon / Physician: Tiburcio Menon Drawing Kiln Supervisor: other (Eva) Estimated blood loss: minimal Specimens: none sent Condition: stable Disposition: floor - Medications / Follow-up
--- NOTE | 2017-05-07 11:20 | Anesthesia Post-Op ---
Anesthesia Post OP - Post Ansesthetic Evaluation Patient seen in post op: Yes Resp: within normal limits CV: within normal limits Mental: within normal limits Temp: within normal limits [id number]: within normal limits Nausea and Vomiting: within normal limits Pain: within normal limits
[2017-05-07] MEDS ORDERED: MIDAZOLAM 2 MG/2 ML VIAL ONE (11:22)
[2017-05-07] MEDS ORDERED: LACTATED RINGERS 1,000 ML IV ONE (11:22)
[2017-05-07] MEDS ORDERED: fentaNYL 100 MCG/2 ML VIAL ONE (11:22)
[2017-05-07] MEDS ORDERED: HEPARIN/NACL 0.9% 2 UNITS/ML 500 ML IV ONE (11:48)
--- NOTE | 2017-05-07 12:33 | XRay Report ---
Portable chest. Indication: Lead placement. Comparison: May 03, 2017. Cardiac hardware is in satisfactory position. The heart is normal in size. There is calcific plaque present within the aortic knob. The pulmonary vasculature is normal. The lung holden are clear. The osseous structures are stable. Impression: No acute abnormality. PROCEDURE INTERPRETED AT [facility] DEPARTMENT OF RADIOLOGY Final Report Signed by: Dr. Rhoda Bravo
[2017-05-07] MEDS: FUROSEMIDE 20 MG TABLET PO SCH (19:52)
[2017-05-07] MEDS ORDERED: VANCOMYCIN INJ 1,000 MG in SODIUM CHLORIDE 0.9% 250 ML IV ONE (22:57)
[2017-05-08 05:51] LABS: Basophils % 0.4 % (0.0-0.8); Eosinophils # 0.2 10*3/uL (0.0-0.87); Eosinophils % 2.2 % (0.00-10.9); Hematocrit 43.7 VOL% (35.7-47.0); Hemoglobin 14.5 GM/DL (12.0-16.0); Immature Granulocytes % 0.5 %; Immature Granulocytes Absolute 0.04 #; Lymphocytes # 1.6 10*3/uL (1.4-4.0); Lymphocytes % 19.2 % (21.3-54.2); Mean Corpuscular HGB Conc 33.2 GM/DL (32-36); Mean Corpuscular Hemoglobin 32 PG (27-34); Mean Corpuscular Volume 97.1 FL (87-102); Mean Platelet Volume 10.1 FL (9.6-12.0); Monocytes # 0.8 10*3/uL (0.11-0.8); Monocytes % 9.2 % (1.7-12.7); Neutrophils # 5.7 10*3/uL (1.4-7.4); Neutrophils % 68.5 % (38.7-73.9); Platelet Count 177 T/CUMM (130-400); Red Cell Distribution Width 12.9 % (9.3-17.3); White Blood Count 8.3 T/CUMM (4-12)
[2017-05-08 06:23] LABS: Calcium 9.1 MG/DL (8.5-10.1); Magnesium 2.3 MG/DL (1.8-2.4)
--- NOTE | 2017-05-08 07:09 | XRay Report ---
History: Pacemaker lead placement Date: 05/08/2017 Study: Chest x-ray PA and lateral Comparison exam: 05/07/2017 The left subclavian transvenous pacemaker/defibrillator device is intact and in generally satisfactory position. There is no evidence of pneumothorax. The cardiac silhouette is not enlarged. There is no mediastinal mass. There is mild aortic arch calcification. The pulmonary vasculature is not engorged. There is no pleural effusion. There is no acute infiltrate. There is mild platelike scarring in the left lateral costophrenic angle. There is mild thoracic spondylosis. Impression: No evidence of pneumothorax following pacemaker placement. Stable exam otherwise PROCEDURE INTERPRETED AT [facility] DEPARTMENT OF RADIOLOGY Final Report Signed by: Dr. Stefany Cope
--- NOTE | 2017-05-08 08:12 | Electrophysiology Progress Not ---
Assessment and Plan (1) Ventricular tachycardia Status: Acute Assessment and plan: 61-year-old female, ischemic cardiomyopathy, ejection fraction 30% despite GDMT , class II heart failure, VT/presyncope, paroxysmal atrial fibrillation, hypertension, statin intolerant hyperlipidemia, smoker. 05/07: DDD ICD implant + defibrillator test -Coreg was increased to 3.125 mg twice daily. As tolerated by blood pressure, continue to titrate. -Discussed ICD implant activity limitations and implant site care. Wear the sling all time for 1 week, keep the area dry and the dressing in place for 1 week. -Follow-up with Dr. Menon next Saturday. -Resume Eliquis tonight I will sign off, please call with further questions. Current Visit: Yes (2) Palpitations Status: Acute Current Visit: No (3) Atrial fibrillation Status: Acute Current Visit: No (4) Hyperlipidemia Status: Chronic Current Visit: No (5) Statin intolerance Status: Acute Current Visit: No (6) Near syncope Status: Acute Current Visit: Yes (7) Hypertension Status: Chronic Current Visit: Yes (8) Tobacco use Status: Chronic Current Visit: Yes Electrophysiology Subjective Interval history: She is feeling fine. Removed the pressure dressing, there is no hematoma. Chest x-ray and device interrogations confirmed normal lead parameters and positions. Exam - Constitutional Vitals: Period Temp Pulse Resp BP Sys/Walker Pulse Ox Last 24 Hr 97.2 F-98.1 F 68-76 16-20 90-134/53-74 89-100 General appearance: no acute distress, over weight - Head Head exam: Present: normal inspection, normocephalic - Eye Eye exam: Absent: conjunctival injection, scleral icterus Pupils: Absent: dilated - ENT ENT exam: Present: normal external ear exam - Neck Neck exam: Present: normal inspection - Respiratory Respiratory exam: Present: clear to auscultation bilaterally - Cardiovascular Cardiovascular exam: Present: regular rate and rhythm. Absent: JVD - GI/Abdominal GI/Abdominal exam: Present: normal bowel sounds. Absent: distended - Extremities Exam Extremities exam: Present: normal inspection, normal capillary refill. Absent: edema - Back Exam Back exam: Present: normal inspection - Neurological Exam Neurological exam: Present: alert, oriented X3 - Psychiatric Psychiatric exam: Present: normal affect, normal mood - Skin Skin exam: Present: normal color, warm, abrasion. Absent: cyanosis Results - Labs CBC & BMP: 05/08/17 05:16 05/08/17 05:16 Lab Results: I have reviewed the past 24 hour labs Specialty Discharge - Follow Up or Referrals - Speciality Discharge Instructions Cardiology Instructions: FU with EP dr. Menon next Saturday. Keep the dressing in the place and the implant site dry for 1 week. Wear the sling all time for 1 week
[2017-05-08 08:29] VITALS: BP 131/69
--- NOTE | 2017-05-08 08:36 | Discharge Summary ---
Hospital Course - Hospital Course Hospital Course: Ms. Mcrae was admitted to the hospital after a call from the monitoring device showed she had near syncope with VT. Her sotalol was discontinued and she was changed amiodarone she was seen by Dr. Menon who recommended continuation of this now and monitoring the rhythm burden after his ICD was placed. She had a dual-chamber ICD placed on 05/07/2017 and it interrogated nicely with good chest x-ray in the morning of discharge she has not had any dysrhythmias since being hospitalized. The ICD was placed as secondary prophylaxis with DVT and near syncope. This is a secondary prophylaxis for nonischemic cardiomyopathy with underlying coronary artery disease. Patient also had up titration of her beta-neena which she tolerated well during the hospitalization. We attempted previously to place the patient on statins and she has been intolerant and she declines taking these medications. The patient appeared to have maximally benefited from hospitalization was discharged home on 05/08/2017 she was instructed to follow-up with Dr. Menon next Saturday. She is to wear her arm sling shoulder immobilizer and continue to have her site dressed until she follows up with Dr. Menon. - Time spent with patient Time with patient DS: Greater than 30 minutes Diagnosis - Discharge Diagnosis (1) Hyperlipidemia Status: Chronic (2) Statin intolerance Status: Acute (3) High risk medication use Status: Chronic (4) Smoker Status: Chronic (5) Systolic dysfunction, left ventricle Status: Acute (6) CAD (coronary artery disease) Status: Chronic (7) PAF (paroxysmal atrial fibrillation) Status: Chronic (8) Ventricular tachycardia, non-sustained Status: Acute (9) Cardiomyopathy Status: Chronic (10) Dyslipidemia Status: Chronic (11) Hypertension Status: Chronic (12) Tobacco use Status: Chronic (13) Symptomatic PVCs Status: Chronic Specialty Discharge - Follow Up or Referrals Follow up with: Tiburcio Menon MD [Physician] - 05/14/17 (Saturday05/14/17 with ICD interrogation and ECG) Discharge Plan - Discharge Data Disposition: Disch To Home/Self Care Condition at Discharge: Stable Discharge Diet: advance to your usual diet Activity: resume usual activities as tolerated, no lifting, other (shoulder immobilizer) Hygiene: keep area(s) dry Weight Bearing at Discharge: full weight bearing Driving: not until seen by doctor Contact your physician if you experience:: fever over 101, Difficulty voiding, Redness or swelling, Nausea/Vomiting, Shortness of breath, Bleeding, pain uncontrolled by pain medications Wound / Dressing Care Instructions: leave dressing in place until follow up with Dr. Menon - Discharge Medications New Albuterol Inhaler [Proventil Inhaler] 2 puff INH Q6H PRN #1 inhaler PRN Reason: Shortness Of Breath/Wheezing Amiodarone Tab [Cordarone Tab] 200 mg PO BID #45 tablet Carvedilol [Coreg] 3.125 mg PO BID #60 tablet Losartan [Cozaar] 12.5 mg PO DAILY #30 tablet Continue Potassium Chloride [Klor-Con M20] 20 meq PO DAILY Furosemide Tab [Lasix Tab] 40 mg PO DAILY Calcium Carbonate/Vitamin D3 [Calcium 500-Vit D3 200 Tablet] 500 mg PO BID Aspirin 81 mg PO DAILY Apixaban [Eliquis] 5 mg PO BID Ascorbic Acid [Vitamin C] 500 mg PO BID Discontinued Sotalol [Betapace] 40 mg PO BID - Follow Up or Referral - Forms/Instructions Exam - Constitutional Vitals: Period Temp Pulse Resp BP Sys/Walker Pulse Ox Last 24 Hr 97.2 F-98.1 F 68-76 16-20 90-134/53-74 89-100 General appearance: normal weight - Head Head exam: Present: normal inspection - Eye Eye exam: Present: EOMI Pupils: Present: BENEDICTO - ENT ENT exam: Present: normal exam - Neck Neck exam: Present: normal inspection - Respiratory Respiratory exam: Present: clear to auscultation bilaterally - Cardiovascular Cardiovascular exam: Present: regular rate and rhythm (PMI is laterally displaced) - GI/Abdominal GI/Abdominal exam: Present: normal bowel sounds - Extremities Exam Extremities exam: Present: normal inspection - Back Exam Back exam: Present: normal inspection - Neurological Exam Neurological exam: Present: alert, oriented X3 - Psychiatric Psychiatric exam: Present: normal affect, normal mood - Skin Skin exam: Present: normal color, warm, dry, other (ICD site is dressed) Discharge Results Procedures and tests throughout hospitalization: Pending Orders 05/07/17 07:36 CL pacemaker Routine Labs on day of discharge: Labs from last 24 hours 05/08/17 05/08/17 05:16 05:16 WBC 8.3 RBC 4.50 Hgb 14.5 Hct 43.7 MCV 97.1 MCH 32 MCHC 33.2 RDW 12.9 Plt Count 177 MPV 10.1 Neut % (Auto) 68.5 Lymph % (Auto) 19.2 L [place] % (Auto) 9.2 Eos % (Auto) 2.2 Baso % (Auto) 0.4 Neut # (Auto) 5.7 Lymph # (Auto) 1.6 [place] # (Auto) 0.8 Eos # (Auto) 0.2 Baso # (Auto) 0.0 Immature Gran % 0.5 Nucleated RBC % 0.0 Immature Gran # 0.04 Nucleated RBCs # 0.00 Immature Plt Fraction 0.0 Sodium 143 Potassium 4.0 Chloride 107 Carbon Dioxide 29 Anion Gap 11.0 BUN 17 Creatinine 0.60 GFR Calculation 100 BUN/Creatinine Ratio 28.00 H Glucose 90 Calculated Osmolality 286.0 Calcium 9.1 Magnesium 2.3 - Impressions Interrogation is good. - Imaging and Cardiology Cardiology Procedure: report reviewed by me Procedure: Chest x-ray: image reviewed by me, report reviewed by me DS: Provider Date of admission: 05/03/17 22:37 Primary care physician: . No PCP Attending physician on admission: Jaun Gonsales MD Consults: 05/05/17 15:38 Consult to Physician [CONS] Routine Comment: Consulting Provider: Tiburcio Menon Consulting Provider Notified: No When should Consulting Provider be notified: In am Person Notified: daniel Date Notified: 05/06/17 Time Notified: 07:40 Consult Notification Comment: Patient known , atrial fib, paroxysmal a tachycardia, who has had some syncopal episodes and seen by Dr. Joaquina Pope. A 30 day event monitor revealed wide complex tachycardia and she had a near syncopal episode. Please evaluate to see if this is V. tach or not. Maybe she needs an ICD or not. Her LVEF is 30%, she had been at [facility] recently, cath showed no major ischemia, LVEF 30%. I do not think this LVEF of 30% has been of long duration, probably less than 3 months. She had been on sotalol from [facility], but apparently was failing it. It was not well tolerated by her. I started amiodarone but she can change her or stop it, depending on your recommendation. Thank you for your help. Discharging clinician: Joaquina Pope DO Expected date of discharge: 05/08/17
[2017-05-08] MEDS: CARVEDILOL 3.125 MG TABLET PO SCH (09:24)
[2017-05-08] MEDS: POTASSIUM CHLORIDE 20 MEQ TABLET PO SCH (09:25)
[2017-05-08] MEDS: LOSARTAN 25 MG TABLET PO SCH (09:25)
[2017-05-08] MEDS: ASCORBIC ACID 500 MG TABLET PO SCH (09:26)
[2017-05-08] MEDS: CALCIUM (CARBONATE)/VITAMIN D 500 MG-200 UNIT TABLET PO SCH (09:26)
[2017-05-08] MEDS: FUROSEMIDE 20 MG TABLET PO SCH (09:27)
[2017-05-08] MEDS: AMIODARONE 200 MG TABLET PO SCH (09:27)
[2017-05-08] MEDS: BENZONATATE 100 MG CAPSULE PO SCH (09:27)
[2017-05-08] MEDS: ASPIRIN CHEW 81 MG TABLET PO SCH (09:28)
== END 2017-05-08 09:37 | disposition home or self-care (01) | DRG 227 ==
LOC: N.ED 18:41 → N.EDINP 22:37 → N.TELEN 23:11
PROVIDERS: ADMIT Internal Medicine Cardiovascular Disease; ATTEND Internal Medicine Cardiovascular Disease
PROC: CLDCICD (2017-05-07 10:15)